=== PATIENT | male | born 1940 | race Caucasian/White ===

== ENCOUNTER → 2017-01-09 | Outpatient (CLI) | payer MEDICARE, BC, OTHER | LOC: MW.CHPOD 08:00 | PROVIDERS: ATTEND Podiatrist Foot & Ankle Surgery | DX: R26.9 Unspecified abnormalities of gait and mobility (principal); M21.40 Flat foot [pes planus] (acquired), unspecified foot; M79.671 Pain in right foot; R25.2 Cramp and spasm; M72.2 Plantar fascial fibromatosis; M79.606 Pain in leg, unspecified | CPT/HCPCS: 29540; 99204 ==

== ENCOUNTER → 2017-01-16 | Outpatient (CLI) | payer MEDICARE, BC, OTHER | LOC: MW.CHPOD 08:00 | PROVIDERS: ATTEND Podiatrist Foot & Ankle Surgery | DX: M79.671 Pain in right foot (principal); M72.2 Plantar fascial fibromatosis; M79.606 Pain in leg, unspecified; R20.9 Unspecified disturbances of skin sensation | CPT/HCPCS: G0463 ==